=== PATIENT | male | born 1970 | race Caucasian/White ===

== ENCOUNTER → 2018-04-01 08:32 | Outpatient (CLI) | payer OTHER | END | disposition home or self-care (01) | LOC: D.RAD 08:30 | DX: R13.19 Other dysphagia (principal) ==

== ENCOUNTER → 2018-11-20 15:06 | Outpatient (CLI) | payer OTHER | END | disposition home or self-care (01) | LOC: D.HCCARDIO 15:06 | PROVIDERS: ATTEND Internal Medicine Cardiovascular Disease | DX: R07.9 Chest pain, unspecified (principal) ==